=== PATIENT | female | born 1965 | race Caucasian/White ===

== ENCOUNTER → 2017-05-15 | Outpatient (CLI) | payer OTHER ==
--- NOTE | ~2017-05-15 | 24HR ---
[facility] [place] [address] 24 HR ELECTROCARDIOGRAM REPORT Name: ELIZ DESAI Room #: REG CL [facility]#: [id number] Admission: 05/15/17 Attend Phys: Charles Radford MD Discharge: Date of : 63 Date of Service: 05/15/17 1425 Report #: [id number] THIS REPORT FOR: //name// [facility] Test Date: 2017-05-15 Test Time: 14:25:00 Pat Name: ELIZ DESAI Department: Room: Gender: Journalism Internship: : 1965 Requested By: Order Number: [id number] Reading MD: Viktor Carreon Interpretive Statements 1. The study duration was 24 hours and the technical quality was good. 2. Predominant rhythm sinus rhythm at an average heart rate of 63 bpm, range 41-121 bpm. Longest RR interval 1.6 seconds. 3. Occasional atrial premature complexes and atrial couplets. No heart block. No atrial fibrillation or atrial flutter. No supraventricular tachycardia. 4. Rare, isolated premature ventricular complexes. No episodes of ventricular tachycardia. 5. No symptoms reported Electronically Signed On 05-17-2017 7:50:30 [employer] by Viktor Carreon [email or web address] <ELECTRONICALLY SIGNED> By: Viktor Carreon MD, FACC 05/17/17 0750 1425 1425 Viktor Carreon MD, FACC /EPI
== END ==
LOC: CV 11:54
DX: R00.1 Bradycardia, unspecified (principal); J45.909 Unspecified asthma, uncomplicated; K21.9 Gastro-esophageal reflux disease without esophagitis; Z98.890 Other specified postprocedural states